=== PATIENT | female | born 1945 | race African-American/Black ===

== ENCOUNTER 2017-11-21 08:30 | Emergency (ER) | payer OTHER ==
[~2017-11-21] VITALS: Ht 165.1 cm; Wt 74.8 kg
[2017-11-21 08:47] VITALS: BP 138/69
[2017-11-21] MEDS ORDERED: PROMETHAZINE HCL 25 MG/ML 1ML IM ONE (09:15)
[2017-11-21] MEDS ORDERED: MEPERIDINE HCL (50 MG/ML) 1 ML VIAL IM ONE (09:15)
== END 2017-11-21 10:15 | disposition home or self-care (01) ==
LOC: ER 08:30
DX: M54.16 Radiculopathy, lumbar region (principal); G89.29 Other chronic pain; E11.9 Type 2 diabetes mellitus without complications
CPT/HCPCS: 96372; 99284; J2175; J2550

== ENCOUNTER 2018-12-30 22:33 | Emergency (ER) | payer OTHER ==
[~2018-12-30] VITALS: Ht 167.6 cm; Wt 68.0 kg
[2018-12-30 22:35] VITALS: BP 102/58
[2018-12-31] MEDS ORDERED: PHENAZOPYRIDINE HCL 100 MG TAB PO ONE (03:30)
[2018-12-31] MEDS ORDERED: BACLOFEN 10 MG TAB PO ONE (03:30)
[2018-12-31] MEDS ORDERED: methylPREDNISolone SOD SUCC 125 MG/2 ML VL IM ONE (03:30)
== END 2018-12-31 04:12 | disposition home or self-care (01) ==
LOC: EDBD 22:33 → EDUNIT# 22:33 → ER 22:40
DX: M54.16 Radiculopathy, lumbar region (principal); M54.41 Lumbago with sciatica, right side; N39.0 Urinary tract infection, site not specified; E11.9 Type 2 diabetes mellitus without complications
CPT/HCPCS: 72100; 81002; 96372; 99283; J2930

== ENCOUNTER 2022-08-25 00:21 | Emergency (ER) | payer OTHER ==
[~2022-08-25] VITALS: Ht 165.1 cm; Wt 61.3 kg
[2022-08-25 00:59] VITALS: BP 127/76
[2022-08-25] MEDS ORDERED: MORPHINE SULFATE 4 MG/ML SYR/VIAL IV ONE (01:00)
[2022-08-25] MEDS ORDERED: SODIUM CHLORIDE 0.9% 1,000 ML IVB ONE (01:00)
[2022-08-25] MEDS ORDERED: ONDANSETRON HCL 4 MG/2 ML VIAL IV ONE (01:00)
[2022-08-25 02:04] LABS: Basophils # (auto) 0.1 10 ^3/uL (0-0.2); Basophils % (auto) 1.1 % (0.0-2.0); Eosinophils # (auto) 0 10 ^3/uL (0-0.8); Eosinophils % (auto) 0.7 % (0.0-7.0); Hematocrit 43.6 % (36.0-46.0); Hemoglobin 13.9 g/dL (12.2-16.2); Lymphocytes # (auto) 1.2 10 ^3/uL (0.4-5.4); Mean Corpuscular Hemoglobin 30.1 pg (28.0-32.0); Mean Corpuscular Hgb Conc. 31.8 g/dL (32.0-36.0); Mean Corpuscular Volume 94.8 fL (80.0-100.0); Monocytes # (auto) 0.3 10 ^3/uL (0-1.3); Monocytes % (auto) 4.1 % (0.0-12.0); Neutrophils # (auto) 4.6 10 ^3/uL (1.6-8.6); Neutrophils % (auto) 74.1 % (37.0-80.0); Nucleated Red Blood Cells % 0.1 %; Red Cell Distribution Width 16.5 % (11.8-14.3); White Blood Cell 6.2 10^3/uL (4.4-10.8)
[2022-08-25 02:23] LABS: Albumin 3.7 g/dL (3.4-5.0); BUN/Creatinine Ratio 13.2; Calcium 9.2 mg/dL (8.5-10.1); Magnesium 1.9 mg/dL (1.6-2.6); Potassium 4.2 mmol/L (3.5-5.1)
[2022-08-25 02:26] LABS: Bilirubin, Total 0.3 mg/dL (0.2-1.0); Total Protein 6.7 g/dL (6.4-8.2)
[2022-08-25] MEDS ORDERED: LACTATED RINGER'S 1,000 ML IV ONE (05:30)
== END 2022-08-25 08:07 | disposition left against medical advice (07) ==
LOC: ER 00:21 → EDBD 00:21 → ER 08:07
DX: R10.13 Epigastric pain (principal); R11.2 Nausea with vomiting, unspecified; E11.9 Type 2 diabetes mellitus without complications; Z90.49 Acquired absence of other specified parts of digestive tract; Z88.0 Allergy status to penicillin
CPT/HCPCS: 36415; 71045; 74176; 80053; 82150; 83690; 83735; 84484; 85025; 93005